=== PATIENT | female | born 1940 | race Caucasian/White ===

== ENCOUNTER → 2016-10-08 | Outpatient (CLI) | payer OTHER ==
--- NOTE | 2016-10-08 12:34 | MAMMOGRAPHY REPORT ---
BILATERAL DIGITAL SCREENING MAMMOGRAM WITH CAD: 10/08/2016 CLINICAL HISTORY: Routine screening. Patient has no complaints. TECHNIQUE: Current study was also evaluated with a Computer Aided Detection (CAD) system. Bilateral CC and MLO views were obtained. COMPARISON: Comparison is made to exams dated: 10/03/2015 mammogram, 09/28/2014 mammogram, 09/26/2013 m ammogram, 09/24/2012 mammogram, 07/09/2011 mammogram, and 07/02/2010 mammogram - [facility] nter. BREAST COMPOSITION: There are scattered areas of fibroglandular density in both breasts. FINDINGS: No suspicious masses, calcifications, or areas of architectural distortion are noted in ei ther breast. There has been no significant interval change compared to prior exams. Small bilateral benign-appearing masses and asymmetries are stable compared to prior exams. A linear scar marker den otes a scar on the right lateral breast. IMPRESSION: ACR BI-RADS CATEGORY 2: BENIGN There is no mammographic evidence of malignancy. A 1 year screening mammogram is recommended. The pa tient will receive written notification of the results. Approximately 10% of breast cancers are not detected with mammography. A negative mammographic report should not delay biopsy if a clinically suggestive mass is present. Gia Lang M.D. /:10/08/2016 08:20:24 Director Patient Financial Services: Karlene Vazquez [facility] letter sent: Normal 1/2 BI-RADS Code: ACR BI-RADS Category 2: Benign
== END | disposition home or self-care (01) ==
LOC: C.MAMM 08:03
PROVIDERS: ATTEND Family Medicine
DX: Z12.31 Encounter for screening mammogram for malignant neoplasm of breast (principal)

== ENCOUNTER → 2017-03-23 | Outpatient (CLI) | payer OTHER ==
--- NOTE | 2017-03-23 18:31 | DIAGNOSTIC IMAGING REPORT ---
L HUMERUS MIN 2 VIEWS ROUTINE CLINICAL HISTORY: 76 years-old Female presenting with PAIN IN UPPER LEFT ARM. TECHNIQUE: Frontal and lateral views of the left humerus were obtained. COMPARISON: None. FINDINGS: Degenerative changes of the humeral head at the greater tuberosity likely indicating chronic impingement. No acute fracture or malalignment. Glenohumeral and elbow joints grossly congruent. No radiographic evidence of a soft tissue abnormality. No gross evidence of an elbow joint effusion. IMPRESSION: 1. No acute osseous injury of the left humerus. 2. Findings suggest chronic impingement of the rotator cuff. Electronically signed by: David Lozano M.D. 03/23/2017 6:30 PM Dictated Date/Time: 03/23/2017 6:29 PM
== END | disposition home or self-care (01) ==
LOC: C.RAD 17:38
PROVIDERS: ATTEND Family Medicine
DX: M79.622 Pain in left upper arm (principal)

== ENCOUNTER → 2017-04-02 | Outpatient (CLI) | payer OTHER ==
[2017-04-02 13:40] LABS: ALT/SGPT 32 U/L (12-78); AST/SGOT 13 U/L (15-37); BLOOD UREA NITROGEN 21 mg/dl (7-18); BUN/CREATININE RATIO 25.5 (10-20); CALCIUM 9.6 mg/dl (8.5-10.1); CARBON DIOXIDE 28 mmol/L (21-32); CHLORIDE 105 mmol/L (98-107); GLUCOSE 249 mg/dl (70-99); POTASSIUM 4.4 mmol/L (3.5-5.1); SODIUM 139 mmol/L (136-145)
[2017-04-02 13:42] LABS: ALB/GLOB RATIO 1.2 (0.9-2); ALKALINE PHOSPHATASE 81 U/L (45-117)
== END | disposition home or self-care (01) ==
LOC: C.LABBC 09:17
PROVIDERS: ATTEND Family Medicine
DX: E11.9 Type 2 diabetes mellitus without complications (principal); E78.5 Hyperlipidemia, unspecified

== ENCOUNTER → 2017-04-07 | Outpatient (CLI) | payer OTHER ==
[~2017-04-07] MED LIST: GADAVIST IV PRN
--- NOTE | 2017-04-07 08:54 | DIAGNOSTIC IMAGING REPORT ---
UPPER EXT JOINT COMBO CLINICAL HISTORY: 76 years-old Female presenting with ARM PAIN. TECHNIQUE: Multisequence, multiplanar MR imaging of the left humerus was performed without the use of intravenous contrast. IV contrast: 7 mL of Gadavist. COMPARISON: Plain radiographs of the left humerus from 03/23/2017. FINDINGS: Cystic change noted at the greater tuberosity at the footplate of the supraspinatus and infraspinatus. Cystic change also noted at the lesser tuberosity. Cystic change also noted in the acromion process. Glenohumeral joint congruent. No significant shoulder effusion. Articular cartilage of the humeral head is intact. No significant subluxation of the humeral head. Labrum grossly intact, suboptimally evaluated secondary to scan planes focused on the humerus. The rotator cuff is not optimally evaluated secondary to scan planes focused on the humerus. Allowing for this, linear increased fluid signal intensity within the supraspinatus likely indicates laminar type tear. Focal fluid signal intensity along the bursal fibers of the footplate and critical zone of the infraspinatus consistent with partial tear. Subscapularis with increased signal intensity of the tendon consistent with tendinosis. Transverse ligament of the subscapularis grossly intact. Teres minor grossly intact. The long head of the biceps tendon remains well seated in the intertubercular groove. Short head of the biceps tendon intact. The distal humerus demonstrates no bony edema. The elbow joint is congruent. Articular cartilage of the elbow joint is grossly intact. No significant elbow joint effusion. The triceps tendon is intact. Brachialis tendon intact. Biceps tendon insertion incompletely visualized but grossly intact within the [id number]. Common flexor tendon and ulnar collateral ligament complex grossly intact. Minimal increased signal intensity at the origin of the common extensor tendon suggesting tendinosis. Radial collateral ligament complex grossly intact. Postcontrast imaging demonstrates enhancement of the subacromial subdeltoid bursa, which contains a small amount of fluid. Enhancement of subchondral cystic change at the humeral head. Vessels patent. IMPRESSION: 1. The glenohumeral joint is suboptimally evaluated secondary to scan planes focused on humerus. Allowing for this, findings suspicious for laminar type tear of the supraspinatus and partial bursal surface tear of the infraspinatus tendons. 2. Tendinosis of the subscapularis. 3. Extensive cystic change in the greater and lesser tubercles and acromion process consistent with chronic impingement. 4. Remainder of the humerus is normal. Electronically signed by: David Lozano M.D. 04/07/2017 8:52 AM Dictated Date/Time: 04/07/2017 8:41 AM
== END | disposition home or self-care (01) ==
PROVIDERS: ATTEND Family Medicine
DX: M79.602 Pain in left arm (principal); M89.9 Disorder of bone, unspecified

== ENCOUNTER → 2017-05-14 | Outpatient (CLI) | payer OTHER ==
--- NOTE | 2017-05-14 10:13 | DIAGNOSTIC IMAGING REPORT ---
R WRIST W/NAVICULAR MIN 3 VIEWS HISTORY: 76 years-old Female RIGHT WRIST INJURY acute right wrist pain status post fall COMPARISON: None available TECHNIQUE: 4 views of the right wrist FINDINGS: The bones appear mildly demineralized. Mild radiocarpal, triscaphe and first carpometacarpal osteoarthritis. There is no acute fracture or dislocation. Specifically, the scaphoid appears intact. No opaque foreign body or significant soft tissue swelling. IMPRESSION: 1. Mild degenerative changes without acute fracture identified. 2. Mildly demineralized appearance of the bones. The above report was generated using voice recognition software. It may contain grammatical, syntax or spelling errors. Electronically signed by: Baron Smith M.D. 05/14/2017 10:12 AM Dictated Date/Time: 05/14/2017 10:10 AM
== END | disposition home or self-care (01) ==
LOC: C.RDSM 17:37
PROVIDERS: ATTEND Family Medicine
DX: S69.91XA Unspecified injury of right wrist, hand and finger(s), initial encounter (principal); X58.XXXA Exposure to other specified factors, initial encounter

== ENCOUNTER → 2017-11-17 | Outpatient (CLI) | payer OTHER ==
--- NOTE | 2017-11-18 13:53 | MAMMOGRAPHY REPORT ---
BILATERAL DIGITAL SCREENING MAMMOGRAM TOMOSYNTHESIS WITH CAD: 11/17/2017 CLINICAL HISTORY: Routine screening. Patient has no complaints. TECHNIQUE: The study was acquired using full field digital technology and interpreted from soft copy. Breast tomosynthesis in addition to standard 2D mammography was performed. Current study was also ev aluated with a Computer Aided Detection (CAD) system. COMPARISON: Comparison is made to exams dated: 10/08/2016 mammogram, 10/03/2015 mammogram, 09/28/2014 ma mmogram, 09/26/2013 mammogram, 09/24/2012 mammogram, and 07/09/2011 mammogram - [facility] ter. BREAST COMPOSITION: There are scattered areas of fibroglandular density in both breasts. FINDINGS: There are stable asymmetries in the superior and lateral right breast, and a stable benign circumscribed subcentimeter mass in the left upper outer quadrant posteriorly. No suspicious mass, ar chitectural distortion or cluster of microcalcifications is seen. IMPRESSION: ACR BI-RADS CATEGORY 1: NEGATIVE There is no mammographic evidence of malignancy. A 1 year screening mammogram is recommended.( [id number]) The patient will receive written notification of the results. Some breast cancers are not detected with mammography. A negative mammographic report should not ti y biopsy if a clinically suggestive mass is present. Amanda Wasserman M.D. ay/:11/17/2017 16:09:55 Heavy Cleaner: RT Cole(R)(M), [facility] letter sent: Normal 1/2 BI-RADS Code: ACR BI-RADS Category 1: Negative
== END | disposition home or self-care (01) ==
LOC: C.MAMM 07:11
PROVIDERS: ATTEND Family Medicine
DX: Z12.31 Encounter for screening mammogram for malignant neoplasm of breast (principal)